=== PATIENT | male | born 1935 | race Caucasian/White ===

== ENCOUNTER 2016-12-05 09:29 | Day surgery (SDC) | payer MEDICARE, BC ==
[~2016-12-05 09:29] MED LIST: Buffered Lidocaine 0.9% SYRIN* 5 ML/SYR SYRINGE INTRADERM ONE
[2016-12-05] MEDS ORDERED: Midazolam* 1 MG/ML 2 ML VIAL (2 MG) ONE (11:55)
[2016-12-05 12:33] VITALS: BP 138/53
--- NOTE | 2016-12-05 23:40 | OP ---
DATE OF OPERATION: 12/05/16 - [facility] DATE OF : 33 SURGEON: Chirag Daley MD. PREOPERATIVE DIAGNOSIS: Cataract, right eye. POSTOPERATIVE DIAGNOSIS: Cataract, right eye. OPERATIVE PROCEDURE: Phacoemulsification, right eye with IOL. DESCRIPTION OF PROCEDURE: The patient was brought to the operating room after being given 1/2% Alcaine with epinephrine drops in the preoperative area. The eye was prepped and draped in the usual sterile fashion. Sterile drape and eyelid speculum were placed. Again, topical 1/2% Alcaine with epinephrine was given. A paracentesis incision was made at the 9 o'clock position with the No.75 blade. Clear cornea incision 2.2 x 2.2-mm was created at the 12 o'clock position starting at the anterior limbus using the 2.2-mm keratome. The anterior chamber was irrigated with 0.4 mL of 1% non-preservative intracameral lidocaine and filled with DisCoVisc. A capsulorrhexis was completed using the cystotome and the Utrata forceps. Hydrodissection was performed with balanced salt solution. The lens nucleus was removed with the Phacoemulsification handpiece without incident. Cortex was removed with the irrigation-aspiration handpiece. The capsular bag was re-inflated using DisCoVisc and an [id number] implant was inserted with the shooter. The pupil was small, so a Malyugin ring was used to dilate the pupil prior to capsulorrhexis and removed after insertion of the lens. The irrigation-aspiration handpiece was used to remove all residual DisCoVisc. The eye was refilled with balanced salt solution and the wound checked and found to be watertight. Topical Maxitrol drops were given. Indication for complex cataract surgery: Pupil abnormalities, requiring pupil dilation device. [id number]/[facility] #: [id number] MTDLise
== END 2016-12-05 12:47 | disposition home or self-care (01) ==
LOC: OREAST 09:29
PROVIDERS: ATTEND Specialist
DX: H25.11 Age-related nuclear cataract, right eye (principal); H21.562 Pupillary abnormality, left eye; E11.9 Type 2 diabetes mellitus without complications; Z79.84 Long term (current) use of oral hypoglycemic drugs; Z87.891 Personal history of nicotine dependence; N18.3 Chronic kidney disease, stage 3 (moderate); I25.10 Atherosclerotic heart disease of native coronary artery without angina pectoris; I12.9 Hypertensive chronic kidney disease with stage 1 through stage 4 chronic kidney disease, or unspecified chronic kidney disease; E78.2 Mixed hyperlipidemia
CPT/HCPCS: J2250; V2632

== ENCOUNTER 2016-12-12 06:53 | Day surgery (SDC) | payer MEDICARE, BC ==
[~2016-12-12 06:53] MED LIST changes: +Acetaminophen TAB* 325 MG PO PRN; +Buffered Lidocaine 0.9% SYRIN* 5 ML/SYR SYRINGE ONE; +Cyclopentolate 1% OPTH.SOL* 2 ML BTL ONE; +Ketorolac 0.5% OPHTH (NF) 0.5 % 5 ML BTL ONE; +Lidocaine 1% MPF* 2 ML VIAL ONE; +Lidocaine 2% EPI 1:200000 MPF* 20 ML VIAL ONE; +Neomycin/Polymy/Dex OPTH.SUSP* MAXITROL 0.1% 5 ML ONE; +Phenylephrine 2.5% OPTH.SOL* 2 ML BTL ONE; +Povidone Iodine 5% OPTH* 30 ML BTL ONE; +Proparacaine 0.5% OPHTH.SOL* 15 ML BTL ONE; +acetaZOLAMIDE TAB* 250 MG ONE
[2016-12-12] MEDS ORDERED: Midazolam* 1 MG/ML 2 ML VIAL (2 MG) ONE (08:44)
[2016-12-12 09:17] VITALS: BP 136/84
--- NOTE | 2016-12-12 09:37 | OP ---
DATE OF OPERATION: 12/12/2016 - [facility] DATE OF : 1935. SURGEON: Chirag Daley M.D. PREOPERATIVE DIAGNOSIS: Cataract left eye. POSTOPERATIVE DIAGNOSIS: Cataract left eye. OPERATIVE PROCEDURE: Phacoemulsification left eye with IOL. DESCRIPTION OF PROCEDURE: The patient was brought to the operating room after being given 1/2% Alcaine with epinephrine drops in the preoperative area. The eye was prepped and draped in the usual sterile fashion. Sterile drape and eyelid speculum were placed. Again, topical 1/2% Alcaine with epinephrine was given. A paracentesis incision was made at the 3 o'clock position with the No.75 blade. Clear cornea incision 2.2 x 2.2-mm was created at the 6 o'clock position starting at the anterior limbus using the 2.2-mm keratome. The anterior chamber was irrigated with 0.4 mL of 1% non-preservative intracameral lidocaine and filled with DisCoVisc. A capsulorrhexis was completed using the cystotome and the Utrata forceps. Hydrodissection was performed with balanced salt solution. The lens nucleus was removed with the Phacoemulsification handpiece without incident. Cortex was removed with the irrigation-aspiration handpiece. The capsular bag was re-inflated using DisCoVisc and an [id number] implant was inserted with the shooter. The irrigation-aspiration handpiece was used to remove all residual DisCoVisc. The eye was refilled with balanced salt solution and the wound checked and found to be watertight. Topical Maxitrol drops were given. [id number]/[facility] #: [id number] [facility]
[2016-12-12] MEDS ORDERED: Lidocaine 2% EPI 1:200000 MPF* 20 ML VIAL ONE (10:54)
[2016-12-12] MEDS ORDERED: Ketorolac 0.5% OPHTH (NF) 0.5 % 5 ML BTL ONE (10:54)
[2016-12-12] MEDS ORDERED: Povidone Iodine 5% OPTH* 30 ML BTL ONE (10:54)
[2016-12-12] MEDS ORDERED: Neomycin/Polymy/Dex OPTH.SUSP* MAXITROL 0.1% 5 ML ONE (10:54)
[2016-12-12] MEDS ORDERED: Cyclopentolate 1% OPTH.SOL* 2 ML BTL ONE (10:54)
[2016-12-12] MEDS ORDERED: Phenylephrine 2.5% OPTH.SOL* 2 ML BTL ONE (10:54)
[2016-12-12] MEDS ORDERED: Buffered Lidocaine 0.9% SYRIN* 5 ML/SYR SYRINGE ONE (10:54)
[2016-12-12] MEDS ORDERED: Lidocaine 1% MPF* 2 ML VIAL ONE (10:54)
[2016-12-12] MEDS ORDERED: acetaZOLAMIDE TAB* 250 MG ONE (10:54)
[2016-12-12] MEDS ORDERED: Proparacaine 0.5% OPHTH.SOL* 15 ML BTL ONE (10:54)
== END 2016-12-12 09:25 | disposition home or self-care (01) ==
LOC: OREAST 06:53
PROVIDERS: ATTEND Specialist
DX: E11.36 Type 2 diabetes mellitus with diabetic cataract (principal); H25.12 Age-related nuclear cataract, left eye; Z96.1 Presence of intraocular lens; E78.2 Mixed hyperlipidemia; E11.22 Type 2 diabetes mellitus with diabetic chronic kidney disease; I12.9 Hypertensive chronic kidney disease with stage 1 through stage 4 chronic kidney disease, or unspecified chronic kidney disease; N18.3 Chronic kidney disease, stage 3 (moderate); I25.10 Atherosclerotic heart disease of native coronary artery without angina pectoris; Z87.891 Personal history of nicotine dependence; Z85.828 Personal history of other malignant neoplasm of skin; Z79.82 Long term (current) use of aspirin; Z79.84 Long term (current) use of oral hypoglycemic drugs
CPT/HCPCS: A9270-GY; J2250; V2632

== ENCOUNTER 2017-01-17 10:31 | Emergency (ER) | payer MEDICARE, BC ==
[2017-01-17] MEDS ORDERED: Meclizine TAB* 12.5 MG PO ONE (11:26)
[2017-01-17 12:08] VITALS: BP 163/84
--- NOTE | 2017-01-17 18:58 | ED ---
Alexei Sheridan Angela, scribed for Didier Strauss MD on 01/17/17 at 1103 . Psychiatric Complaint - HPI Summary HPI Summary: This pt is a 81 y/o male accompanied by his presenting to [facility] c/o panic attacks for the last couple of weeks. He additionally c/o decreased appetite secondary to panic attacks. Pt reports he saw a PRODUCTION CONTROL CLERK 1 week ago and was started on Lexapro 10 mg. Today is his 7th day on Lexapro and states it doesn't seem to be working. Pt has had this episode before 7 years ago and was also put on Lexapro. Pt is a recovering alcoholic. PCP is Dr. Quiñonez and has upcoming appointment with him in February. - History Of Current Complaint Chief Complaint: EDGeneral Hx Obtained From: Patient Onset/Duration: Lasting Weeks, Still Present Timing: Weeks Character: Anxious Aggravating Factor(s): Nothing Alleviating Factor(s): Nothing Associated Signs And Symptoms: Positive: Appetite Change - decreased appetite Related History: Positive For: Prior Psychiatric Issues - panic attacks 7 years ago. - Allergies/Home Medications Allergies/Adverse Reactions: Allergies Allergy/AdvReac Type Severity Reaction Status Date / Time No Known Allergies Allergy Verified 12/12/16 07:19 PMH/Surg Hx/FS Hx/Imm Hx Endocrine/Hematology History: Reports: Hx Diabetes Cardiovascular History: Reports: Hx Angioplasty, Hx Hypertension, Other Cardiovascular Problems/Disorders - heart murmur Denies: Hx Pacemaker/ICD Respiratory History: Reports: Other Respiratory Problems/Disorders - EX SMOKER QUIT 20 YRS AGO History: Reports: Other Problems/Disorders - reduced kidney function Denies: Hx Renal Disease Musculoskeletal History: Reports: Hx Arthritis, Other Musculoskeletal History - neck pain, numbness/tingling Sensory History: Reports: Hx Cataracts, Hx Contacts or Glasses, Other Sensory Impairments - dentures Denies: Hx Hearing Aid Opthamlomology History: Reports: Hx Cataracts, Hx Contacts or Glasses, Other Sensory Impairments - dentures Neurological History: Reports: Hx Headaches Psychiatric History: Reports: Other Psychiatric Issues/Disorders - Panic attacks Denies: Hx Panic Disorder - Cancer History Cancer Type, Location and Year: skin cancers - removed surgically - Surgical History Surgery Procedure, Year, and Place: right and left cataract removal - december 2016 Hx Anesthesia Reactions: No Infectious Disease History: No Infectious Disease History: Denies: Traveled Outside the [place] in Last 30 Days - Family History Known Family History: Negative: Cardiac Disease, Hypertension - Social History Alcohol Use: None Substance Use Type: Reports: None Smoking Status (MU): Former Smoker Amount Used/How Often: 1 PPD Review of Systems Positive: Other - decreased appetite. Negative: Fever, Chills Eyes: Negative ENT: Negative Cardiovascular: Negative Respiratory: Negative Gastrointestinal: Negative Psychological: Other - panic attacks Positive: Anxious All Other Systems Reviewed And Are Negative: Yes Physical Exam - Summary Physical Exam Summary: VITAL SIGNS: Reviewed. GENERAL: Patient is a well-developed and nourished male who is lying comfortable in the stretcher. Patient is not in any acute respiratory distress. HEAD AND FACE: No signs of trauma. No ecchymosis, hematomas or skull depressions. No sinus tenderness. EYES: PERRLA, EOMI x 2, No injected conjunctiva, no nystagmus. EARS: Hearing grossly intact. Ear canals and tympanic membranes are within normal limits. MOUTH: Oropharynx within normal limits. NECK: Supple, trachea is midline, no adenopathy, no JVD, no carotid bruit, no c- spine tenderness, neck with full ROM. CHEST: Symmetric, no tenderness at palpation LUNGS: Clear to auscultation bilaterally. No wheezing or crackles. CVS: Regular rate and rhythm, S1 and S2 present, no murmurs or gallops appreciated. ABDOMEN: Soft, non-tender. No signs of distention. No rebound no guarding, and no masses palpated. Bowel sounds are normal. EXTREMITIES: FROM in all major joints, no edema, no cyanosis or clubbing. NEURO: Alert and oriented x 3. No acute neurological deficits. Speech is normal and follows commands. SKIN: Dry and warm Triage Information Reviewed: Yes Vital Signs On Initial Exam: Initial Vitals Temp Pulse Resp BP Pulse Ox 97.4 F 71 18 162/65 98 01/17/17 10:32 01/17/17 10:32 01/17/17 10:32 01/17/17 10:32 01/17/17 10:32 Vital Signs Reviewed: Yes Diagnostics - Vital Signs Vital Signs Temp Pulse Resp BP Pulse Ox 01/17/17 10:32 97.4 F 71 18 162/65 98 - Laboratory Lab Statement: Any lab studies that have been ordered have been reviewed, and results considered in the medical decision making process. Course/Dx - Course Assessment/Plan: This pt is a 81 y/o male accompanied by his presenting to [facility] c/o panic attacks for the last couple of weeks. He additionally c/o decreased appetite secondary to panic attacks. Pt reports he saw a PRODUCTION CONTROL CLERK 1 week ago and was started on Lexapro 10 mg. Today is his 7th day on Lexapro and states it doesn't seem to be working. Pt has had this episode before 7 years ago and was also put on Lexapro. Pt is a recovering alcoholic. PCP is Dr. Quiñonez and has upcoming appointment with him in February. The pt came and requested medications for panic attacks. The pt has been taking Lexapro, which he started 7 days ago but he continued to have panic attacks specially in the middle of the night. He requested a non-narcotic or opioid since he has a history of alcoholism. The pt was given antivert and will be discharged home with prescription antivert. Pt is hemodynamically stable, alert and oriented x3. - Differential Dx/Clinical Impression Provider Diagnosis: Panic attacks Discharge - Discharge Plan Condition: Stable Disposition: HOME Prescriptions: Meclizine TAB* [Antivert 12.5 TAB*] 25 mg PO TID PRN #30 tab PRN Reason: Agitation/Anxiety/Insomnia Patient Education Materials: Panic Attack (ED) Referrals: Boyd Quiñonez MD [Primary Care Provider] - Additional Instructions: Please follow up with your primary care provider. RETURN TO THE ED FOR ANY WORSENING SYMPTOMS. The documentation as recorded by the Alexei wing Angela accurately reflects the service I personally performed and the decisions made by me, Didier Strauss MD.
== END 2017-01-17 12:07 | disposition home or self-care (01) ==
LOC: ED 10:31
DX: F41.0 Panic disorder [episodic paroxysmal anxiety] (principal); F41.9 Anxiety disorder, unspecified; Z87.891 Personal history of nicotine dependence
CPT/HCPCS: 99282; A9270-GY